=== PATIENT | female | born 1965 | race Two or more races ===

== ENCOUNTER 2018-04-12 15:15 | Inpatient (IN) | payer OTHER ==
[~2018-04-12] VITALS: Ht 162.6 cm; Wt 67.1 kg
[2018-04-12] VITALS (7 sets, daily range): BP systolic 102–117; BP diastolic 45–68
[2018-04-12] MEDS ORDERED: IBUP-1958 PO (17:41)
[2018-04-12] MEDS ORDERED: LISI-603 PO (17:41)
--- NOTE | 2018-04-12 17:45 | NUR ---
PT RECEIVED BP 95/50. TRACK LEADER LW INFORMED ADN REQUESTING TRANSFER TO ICU. CHARGE NURSE MADE AWARE. TRANS TO 261. REPORT GIVEN TO SILVESTRE.
[2018-04-12] MEDS ORDERED: ONDANSETRON HCL/PF 4 MG/2 ML VIAL IVP PRN (18:00)
[2018-04-12] MEDS ORDERED: IV NS 0.9% 1,000 ML BAG IV ONE (18:00)
[2018-04-12] MEDS ORDERED: NOREPINEPHRINE 8 MG in IV D5W 500 ML IV PRN (18:00)
[2018-04-12 18:50] LABS: ALBUMIN 2.3 g/dL (3.4-5.0); BILIRUBIN,TOTAL 0.7 mg/dL (0.2-1.0); CALCIUM, SERUM 7.8 mg/dL (8.5-10.1); CREATININE 1.2 mg/dL (0.6-1.3); MAGNESIUM 2.1 mg/dL (1.8-2.4); PHOSPHORUS 2.5 mg/dL (2.5-4.9); POTASSIUM 4.2 mmol/L (3.5-5.1); TOTAL PROTEIN, SERUM 5.8 g/dL (6.4-8.2)
[2018-04-12 18:54] LABS: EOSINOPHILS % (AUTO) 0.2 % (0.0-6.0); HEMATOCRIT 38 % (33-45); HEMOGLOBIN 12.8 g/dL (11.5-14.8); LYMPHOCYTES # (AUTO) 0.5 /CMM (0.8-4.8); LYMPHOCYTES % (AUTO) 2.4 % (20.0-44.0); MEAN CORPUSCULAR HGB CONC 34 g/dl (31.0-36.0); MEAN CORPUSCULAR VOLUME 86 fL (82-100); MONOCYTES # (AUTO) 0.7 /CMM (0.1-1.30); MONOCYTES % (AUTO) 3.9 % (2.0-12.0); NEUTROPHILS # (AUTO) 17.9 /CMM (1.8-8.9); NEUTROPHILS % (AUTO) 93.5 % (43.0-81.0); PLATELET COUNT (AUTO) 138 /CMM (150-450); RDW COEFFICIENT OF VARIATION 13.1 (11.5-15.0); RED BLOOD CELL COUNT(AUTO) 4.46 MIL/uL (4.0-5.2); WHITE BLOOD COUNT (AUTO) 19.1 K/uL (4.3-11.0)
[2018-04-12] MEDS ORDERED: FEE PK DOSING 1 MIN EA MC ONE (19:01)
--- NOTE | 2018-04-12 19:32 | NUR ---
STOCK ANALYST. ADMISSION. RECEIVED THE PT FROM MED/SURG. LOW BLOOD PRESSURE. PT AWAKE, ALERT, FOLLOW COMMANDS. FURNACE MAINTENANCE SHOWING NSR. IV RT AC 20G. SALINE LOCK. AFEBRILE. BLOOD PRESSURE 102/45. WILL CONTINUE TO MONITOR VITALS.
[2018-04-12] MEDS: IV NS 0.9% 1,000 ML IV SCH (20:58)
[2018-04-12] MEDS ORDERED: MORPHINE SULFATE INJ 2 MG/ML DISP.SYRIN IV PRN (21:30)
[2018-04-12] MEDS: PIPERACILLIN /TAZOBACTAM 3.375 G in IV D5W 50 ML IV SCH (22:02)
[2018-04-12] MEDS: VANCOMYCIN 0.75 GM in IV D5W 250 ML IV SCH (22:02)
[2018-04-12] MEDS: ENOXAPARIN SODIUM 30 MG/0.3 ML DISP.SYRIN SQ SCH (22:06)
[2018-04-12] MEDS: MORPHINE SULFATE INJ 4 MG/ML DISP.SYRIN IV PRN (22:59)
[2018-04-12] MEDS: ACETAMINOPHEN 325 MG TABLET PO PRN (23:15)
--- NOTE | 2018-04-12 23:29 | NUR ---
horticultural specialty grower field. pt c/o rt chest and shoulder pain. morphine iv given pr md ordered. EKG TAKEN.
--- NOTE | 2018-04-12 23:31 | NUR ---
BROWNELL OPERATOR. TEMPERATURE 101.4. TYLENOL PO GIVEN PER MD ORDERED.
[2018-04-13] VITALS (25 sets, daily range): BP systolic 85–159; BP diastolic 25–91
[2018-04-13 04:37] LABS: BASOPHILS % (AUTO) 0.1 % (0.0-2.0); EOSINOPHILS % (AUTO) 0.1 % (0.0-6.0); HEMATOCRIT 37 % (33-45); HEMOGLOBIN 12.5 g/dL (11.5-14.8); LYMPHOCYTES % (AUTO) 7.9 % (20.0-44.0); MEAN CORPUSCULAR HGB CONC 34 g/dl (31.0-36.0); MEAN CORPUSCULAR VOLUME 86 fL (82-100); MONOCYTES # (AUTO) 0.5 /CMM (0.1-1.30); MONOCYTES % (AUTO) 4.2 % (2.0-12.0); NEUTROPHILS # (AUTO) 11.1 /CMM (1.8-8.9); NEUTROPHILS % (AUTO) 87.7 % (43.0-81.0); PLATELET COUNT (AUTO) 143 /CMM (150-450); RDW COEFFICIENT OF VARIATION 13.1 (11.5-15.0); RED BLOOD CELL COUNT(AUTO) 4.33 MIL/uL (4.0-5.2); WHITE BLOOD COUNT (AUTO) 12.6 K/uL (4.3-11.0)
[2018-04-13] MEDS: IV NS 0.9% 1,000 ML IV SCH ×2 (04:52→08:20)
--- NOTE | 2018-04-13 04:56 | NUR ---
HEAD BANQUET WAITER/WAITRESS. AM CARE, ORAL CARE, BED BATH GIVEN. LINEN CHANGED. REMAINING SAME IVF NS 150ML/H. HOB ELEVATED, PT SLEPT WELL DURING NIGHT, AFEBRILE. WILL CONTINUE TO MONITOR VITALS.
[2018-04-13 05:12] LABS: CALCIUM, SERUM 7.6 mg/dL (8.5-10.1); CARBON DIOXIDE 22 mmol/L (21-32); CHLORIDE 108 mmol/L (98-107); GLUCOSE 90 mg/dL (74-106); MAGNESIUM 2.1 mg/dL (1.8-2.4); PHOSPHORUS 2.7 mg/dL (2.5-4.9); POTASSIUM 4.4 mmol/L (3.5-5.1); SODIUM SERUM 135 mmol/L (136-145); UREA NITROGEN, BLOOD 12 mg/dL (7-18)
[2018-04-13 05:19] LABS: CHOLESTEROL 77 mg/dL (<200); LDL 41 mg/dL (0-99); THYROID STIMULATING HORMONE 1.136 uIU/mL (0.358-3.74); TRIGLYCERIDES 117 mg/dL (30-150)
[2018-04-13 05:20] LABS: HDL CHOLESTEROL < 10 mg/dL (40-60)
[2018-04-13] MEDS: PIPERACILLIN /TAZOBACTAM 3.375 G in IV D5W 50 ML IV SCH ×4 (05:20→23:00)
[2018-04-13] MEDS: ACETAMINOPHEN 325 MG TABLET PO PRN ×3 (05:30→21:35)
--- NOTE | 2018-04-13 07:30 | NUR ---
ICU/RN: Pt received in stable condition, no distress noted, breathing even and unlabored, pain management effective. IVF infusing well. Oriented to POC and educated. Safety measures in place. Will cont to monitor pt.
[2018-04-13] MEDS: VANCOMYCIN 0.75 GM in IV D5W 250 ML IV SCH ×2 (08:40→20:29)
[2018-04-13] MEDS: PANTOPRAZOLE 40 MG VIAL IV SCH (08:40)
[2018-04-13] MEDS: IV NS 0.9% 1,000 ML IV PRN ×2 (09:41→18:24)
[2018-04-13] MEDS: MORPHINE SULFATE INJ 4 MG/ML DISP.SYRIN IV PRN ×3 (10:00→22:57)
--- NOTE | 2018-04-13 12:12 | NUR ---
ICU/RN: Shruthi TRANSIT COACH OPERATOR at bedside; pt status dw TRANSIT COACH OPERATOR. New orders noted and carried out. Per TRANSIT COACH OPERATOR, pt to stay in ICU; aware that pt did not need pressors overnight. Will cont to monitor pt.
[2018-04-13] MEDS ORDERED: IBUPROFEN 200 MG TABLET PO PRN (12:30)
--- NOTE | 2018-04-13 13:00 | NUR ---
ICU/RN: Pt c/o discomfort, shivering, chest tightness when coughing up secretions. temp 101; adminstered tylenol and cooling measures. Placed on O2 2L/min via NC, SOB resolved and pt reports increase in comfort. Will cont to monitor pt.
--- NOTE | 2018-04-13 15:00 | NUR ---
ICU/RN: Assisted to BSC. Urine Cx, Rapid influenza swab sent to lab as ordered by Dr Barber, ID consult. RT notified for respiratory Cx.
[2018-04-13] MEDS ORDERED: ENSURE ENLIVE CHOC 237 ML CAN PO SCH (17:00)
--- NOTE | 2018-04-13 18:00 | NUR ---
ICU/RN: CT results relayed to SILVIA Hawkins. Discussed results with pt, verbalized understanding of POC. Pt agreed to CT and US guided nephrostomy tube and drainage placement for the right kidney. Per MASTIC SPRAYER, place on NPO until procedure schedule received. Pt and family in agreement with plan.
[2018-04-13 18:30] LABS: BILIRUBIN,DIRECT 0.3 mg/dL (0.0-0.2)
--- NOTE | 2018-04-13 18:39 | NUR ---
CT GUIDED NEPHROSTOMY TO BE DONE 04/16/18 IN AM. RN RF MICROWAVE ENGINEER MIKAELA BYRNE. SPOKE WITH DEMETRIO SHER. CONSENT FOR COMPUTED TOMOGRAPHY AND ULTRASOUND GUIDED PERCUTANEOUS DRAINAGE PLACEMENT OF RIGHT KIDNEY TO BE OBTAINED. CONSENT FOR MODERATE SEDATION TO BE OBTAINED. PT TO BE NPO AFTER MIDNIGHT. BLOOD THINNERS TO BE ON HOLD DISCUSSED WITH RN. COAGS (PTT, PT, INR) AND PLATELET COUNT TO BE OBTAINED FIRST THING IN THE AM 04/16/18.
--- NOTE | 2018-04-13 19:15 | NUR ---
RELATIONS MANAGER NOTE RECEIVED PATIENT AOX4, ABLE TO MAKE NEEDS KNOWN. NO S/SX OF CARDIAC OR RESPIRATORY DISTRESS, ON 2L O2 VIA NC, ON TELE SR/ST, SKIN KEPT CLEAN AND DRY, LAC #20G WITH NS AT 150 ML/HR, PATENT FLUSHING WELL, SITE IS CLEAN AND DRY. DENIES PAIN. WILL CONTINUE TO MONITOR FOR ANY CHANGES, SAFETY MAINTAINED AT ALL TIMES, CALL LIGHT WITHIN REACH, BED IN LOW, LOCKED POSITION.
[2018-04-13 19:53] LABS: APPEARANCE,URINE CLEAR (CLEAR); BILIRUBIN,URINE NEGATIVE (NEGATIVE); BLOOD, URINE 2+ Ery/uL (NEGATIVE); COLOR,URINE YELLOW (YELLOW); KETONES,URINE NEGATIVE (NEGATIVE); LEUKOCYTE ESTERASE ,URINE 2+ (NEGATIVE); NITRITE, URINE NEGATIVE (NEGATIVE); PROTEIN,URINE NEGATIVE (NEGATIVE); UGLUCOSE NEGATIVE (NEGATIVE)
[2018-04-13] MEDS: IBUPROFEN 400 MG TABLET PO PRN (20:28)
[2018-04-13 20:54] LABS: BACTERIA,URINE Rare /HPF (None Seen); SQUAMOUS EPITHELIAL CELL,UR Few /HPF (None Seen); WBC,URINE 51-80 /HPF (0-3)
[2018-04-13] MEDS: ENOXAPARIN SODIUM 30 MG/0.3 ML DISP.SYRIN SQ SCH (21:34)
[2018-04-14] VITALS (20 sets, daily range): BP systolic 115–151; BP diastolic 38–89
[2018-04-14] MEDS: MORPHINE SULFATE INJ 4 MG/ML DISP.SYRIN IV PRN (04:09)
[2018-04-14 05:11] LABS: CALCIUM, SERUM 7.7 mg/dL (8.5-10.1); CREATININE 0.8 mg/dL (0.6-1.3); MAGNESIUM 1.9 mg/dL (1.8-2.4); PHOSPHORUS 2.3 mg/dL (2.5-4.9)
[2018-04-14 05:26] LABS: EOSINOPHILS % (AUTO) 0.9 % (0.0-6.0); HEMATOCRIT 36 % (33-45); HEMOGLOBIN 11.8 g/dL (11.5-14.8); LYMPHOCYTES # (AUTO) 0.6 /CMM (0.8-4.8); LYMPHOCYTES % (AUTO) 9.5 % (20.0-44.0); MEAN CORPUSCULAR HGB CONC 33 g/dl (31.0-36.0); MEAN CORPUSCULAR VOLUME 87 fL (82-100); MONOCYTES # (AUTO) 0.6 /CMM (0.1-1.30); NEUTROPHILS # (AUTO) 4.7 /CMM (1.8-8.9); NEUTROPHILS % (AUTO) 79.6 % (43.0-81.0); PLATELET COUNT (AUTO) 143 /CMM (150-450); RDW COEFFICIENT OF VARIATION 14.4 (11.5-15.0); WHITE BLOOD COUNT (AUTO) 5.9 K/uL (4.3-11.0)
[2018-04-14] MEDS: PIPERACILLIN /TAZOBACTAM 3.375 G in IV D5W 50 ML IV SCH ×4 (05:45→23:38)
[2018-04-14] MEDS: PANTOPRAZOLE 40 MG VIAL IV SCH (08:05)
[2018-04-14] MEDS: VANCOMYCIN 0.75 GM in IV D5W 250 ML IV SCH (09:00)
[2018-04-14] MEDS ORDERED: ENSURE ENLIVE 237 ML LIQUID (VANILLA) PO SCH (09:00)
[2018-04-14] MEDS: KETOROLAC TROMETHAMINE INJ 30 MG/ML VIAL IV SCH ×3 (09:13→21:15)
--- NOTE | 2018-04-14 09:15 | NUR ---
ICU/RN: Dr Salas at bedside for cardiology consult for surgical clearance. Aware of pt c/o chest pain with inhalation; labs and EKG reviewed. Order for 2D Echo noted and carried out. Pt is clear for procedures per MD.
[2018-04-14] MEDS: ENSURE CLEAR 237 ML LIQUID (MIX BERRY) PO SCH ×2 (09:26→16:03)
[2018-04-14] MEDS: VANCOMYCIN 1 GM in IV D5W 250 ML IV SCH ×2 (10:14→21:13)
[2018-04-14] MEDS: IV NS 0.9% 1,000 ML IV PRN ×3 (10:17→18:35)
[2018-04-14] MEDS: ACETAMINOPHEN 325 MG TABLET PO PRN (10:22)
[2018-04-14] MEDS ORDERED: Sodium Phosphate 7.5 MMOL in IV D5W 100 ML IV ONE (11:00)
[2018-04-14] MEDS: IBUPROFEN 400 MG TABLET PO PRN (11:47)
--- NOTE | 2018-04-14 14:45 | NUR ---
ICU/RN: Jeny Hawkins, RAILROAD HAND at bedside. Labs, info, POC reviewed with pt and family extensively. Pt for surgery on Monday, MRCP ordered. Informed of pt c/o hallucinations, per RAILROAD HAND, most likely due to infectious process.
[2018-04-14] MEDS: LORAZEPAM 1 MG TABLET PO PRN ×2 (15:57→22:43)
--- NOTE | 2018-04-14 18:30 | NUR ---
ICU/RN: Pt transferred in stable condition, no distress noted, pt calm, ativan effective. SB-SR 60's on monitor. at bedside. All belongings and paperwork transferred with pt.
--- NOTE | 2018-04-14 18:30 | NUR ---
RN NOTES RECEIVED PT, DOWNGRADE FROM ICU VIA BED ACCOMPANIED BY RN AND . PT IS A/OX4. NO C/O PAIN AT THIS TIME. PLACED ON TELEMONITOR, SR HR 60S. ON 2L O2 VIA NC, TOLERATING WELL. NO SOB NOTED. WITH INTACT AND PATENT RHAND G22 AND LFA G20 SL. NOTED ANJELICA SWELLING, FROM PREVIOUS IV SITE. EXTREMITY ELEVATED. ORIENTED TO ROOM. VITAL SIGNS TAKEN. SAFETY MEASURES IN PLACED. CALL LIGHT WITHIN REACH. WILL CONT TO MONITOR
--- NOTE | 2018-04-14 19:10 | NUR ---
RN THUAN NOTE RECEIVED PATIENT WITH HOB ELEVATED, AOX4, ABLE TO MAKE NEEDS KNOWN. NO S/SX OF CARDIAC OR RESPIRATORY DISTRESS, ON 2L O2 VIA NC, ON TELE SR, SKIN KEPT CLEAN AND DRY, RIGHT HAND #22G WITH NS AT 150 ML/HR, AND LFA #20G SL, BOTH PATENT FLUSHING WELL, SITE IS CLEAN AND DRY. DENIES PAIN CURRENTLY. WILL CONTINUE TO MONITOR FOR ANY CHANGES, SAFETY MAINTAINED AT ALL TIMES, CALL LIGHT WITHIN REACH, BED IN LOW, LOCKED POSITION.
[2018-04-14] MEDS: ENOXAPARIN SODIUM 30 MG/0.3 ML DISP.SYRIN SQ SCH (21:15)
[2018-04-15] VITALS: BP 130/75
[2018-04-15 00:10] VITALS: BP 130/75
[2018-04-15] MEDS: KETOROLAC TROMETHAMINE INJ 30 MG/ML VIAL IV SCH ×2 (02:55→08:13)
[2018-04-15 04:00] VITALS: BP 147/91
[2018-04-15] MEDS: PIPERACILLIN /TAZOBACTAM 3.375 G in IV D5W 50 ML IV SCH ×3 (05:38→17:59)
[2018-04-15] MEDS: IV NS 0.9% 1,000 ML IV PRN ×2 (05:46→20:47)
[2018-04-15 07:20] LABS: HEMATOCRIT 36 % (33-45); HEMOGLOBIN 12.2 g/dL (11.5-14.8); MEAN CORPUSCULAR HGB CONC 34 g/dl (31.0-36.0); MEAN CORPUSCULAR VOLUME 86 fL (82-100); PLATELET COUNT (AUTO) 144 /CMM (150-450); RDW COEFFICIENT OF VARIATION 14.5 (11.5-15.0); RED BLOOD CELL COUNT(AUTO) 4.23 MIL/uL (4.0-5.2); WHITE BLOOD COUNT (AUTO) 4.2 K/uL (4.3-11.0)
[2018-04-15 07:22] LABS: CREATININE 0.7 mg/dL (0.6-1.3); MAGNESIUM 1.5 mg/dL (1.8-2.4); POTASSIUM 3.9 mmol/L (3.5-5.1)
--- NOTE | 2018-04-15 07:22 | NUR ---
TEXTED DR. [facility]RIA [facility].
[2018-04-15 08:00] VITALS: BP 148/74
--- NOTE | 2018-04-15 08:00 | NUR ---
RN NOTES RECEIVED IN BED, ALERT AND ORIENTED X4, ABLE TO VERBALIZED FEELINGS AND CONCERN, ON NASAL CANNULA WITH 2 LPM, NO SHORTNESS OF BREATH NOTED, WITH COMPLAINTS OF PAIN - WILL ADMINISTER DUE PAIN MEDICATION, PATIENT AMBULATORY, AT BEDSIDE. REMOVED IV LINE ON THE RIGHT HAND DUE TO INFILTRATION. IVL ON THE LEFT FOREARM INTACT AND PATENT ON FLUSHING, IVF LINE ATTACHED. PATIENT REORIENTED ON THE FLOOR. CALL LIGHT LEFT WITHIN EASY REACH, WILL MONITOR PATIENT CLOSELY
[2018-04-15] MEDS: PANTOPRAZOLE 40 MG VIAL IV SCH (08:13)
[2018-04-15] MEDS: ENSURE CLEAR 237 ML LIQUID (MIX BERRY) PO SCH ×2 (08:22→17:47)
[2018-04-15 09:15] LABS: NEUTROPHILS % (MANUAL) 80 (42-76)
[2018-04-15 09:16] LABS: BAND % (MANUAL) 5 % (0.0-5.0); LYMPHOCYTES % (MANUAL) 10 % (16-48); MONOCYTES % (MANUAL) 5 % (0-11.0)
[2018-04-15] MEDS: PANTOPRAZOLE 40 MG TABLET.DR PO SCH (10:00)
[2018-04-15] MEDS: VANCOMYCIN 1 GM in IV D5W 250 ML IV SCH ×2 (10:08→21:05)
[2018-04-15] MEDS: Magnesium 1GM/D5W 100ML PREMIX 100 ML IV SCH ×2 (11:39→15:21)
[2018-04-15] MEDS: ALBUTEROL FS 2.5 MG/0.5 ML VIAL.NEB NEB SCH ×3 (13:30→23:39)
[2018-04-15 16:00] VITALS: BP 148/72
[2018-04-15] MEDS: MORPHINE SULFATE INJ 4 MG/ML DISP.SYRIN IV PRN (18:41)
--- NOTE | 2018-04-15 19:25 | NUR ---
RN NOTES ENDORSED FOR CONTINUITY OF CARE. NO ACUTE CHANGES FOR THE ENTIRE SHIFT. ALL NURSING NEEDS ANTICIPATED AND MET. SAFETY MEASURES IN PLACE ALL THE TIME. CALL LIGHT WITHIN REACH AT ALL TIMES
[2018-04-15 20:00] VITALS: BP 144/74
[2018-04-15] MEDS: IBUPROFEN 400 MG TABLET PO PRN (20:48)
[2018-04-15] MEDS: ENOXAPARIN SODIUM 30 MG/0.3 ML DISP.SYRIN SQ SCH (20:53)
[2018-04-16] MEDS: PIPERACILLIN /TAZOBACTAM 3.375 G in IV D5W 50 ML IV SCH ×3 (00:07→12:00)
[2018-04-16 04:00] VITALS: BP 156/76
[2018-04-16] MEDS: MORPHINE SULFATE INJ 4 MG/ML DISP.SYRIN IV PRN ×2 (04:40→08:42)
[2018-04-16 06:35] VITALS: BP 156/76
--- NOTE | 2018-04-16 07:20 | NUR ---
RN OPENING NOTES RECIEVED PATIENT IN BED RESTING, IN STABLE CONDITION. NO ACUTE DISTRESS, NO SOB. DENIED PAIN AND DISCOMFORT AT THE MOMENT. IV SITE INTACT AND PATENT. KEPT PATIENT SAFE AND COMFORTABLE. BED IN LOW/LOCKED POSITION, SIDERAILS UPX2, MAHI LIGHT IN REACH. WILL CONITNUE TO MONITOR ACCORDINGLY.
[2018-04-16 07:24] LABS: CALCIUM, SERUM 8.3 mg/dL (8.5-10.1); CREATININE 0.7 mg/dL (0.6-1.3); EOSINOPHILS % (AUTO) 2.6 % (0.0-6.0); HEMATOCRIT 38 % (33-45); HEMOGLOBIN 12.6 g/dL (11.5-14.8); LYMPHOCYTES # (AUTO) 1.5 /CMM (0.8-4.8); LYMPHOCYTES % (AUTO) 28.8 % (20.0-44.0); MAGNESIUM 1.7 mg/dL (1.8-2.4); MEAN CORPUSCULAR HGB CONC 34 g/dl (31.0-36.0); MEAN CORPUSCULAR VOLUME 85 fL (82-100); MONOCYTES # (AUTO) 0.9 /CMM (0.1-1.30); MONOCYTES % (AUTO) 16.4 % (2.0-12.0); NEUTROPHILS # (AUTO) 2.8 /CMM (1.8-8.9); NEUTROPHILS % (AUTO) 52.2 % (43.0-81.0); PLATELET COUNT (AUTO) 188 /CMM (150-450); POTASSIUM 3.7 mmol/L (3.5-5.1); RDW COEFFICIENT OF VARIATION 14.6 (11.5-15.0); RED BLOOD CELL COUNT(AUTO) 4.42 MIL/uL (4.0-5.2); WHITE BLOOD COUNT (AUTO) 5.3 K/uL (4.3-11.0)
[2018-04-16 08:00] VITALS: BP 156/81
[2018-04-16] MEDS: ENSURE CLEAR 237 ML LIQUID (MIX BERRY) PO SCH (08:00)
[2018-04-16] MEDS: PANTOPRAZOLE 40 MG TABLET.DR PO SCH (08:42)
[2018-04-16] MEDS: VANCOMYCIN 1 GM in IV D5W 250 ML IV SCH (09:04)
[2018-04-16] MEDS ORDERED: Magnesium 1GM/D5W 100ML PREMIX 100 ML IV SCH (10:30)
--- NOTE | 2018-04-16 11:30 | NUR ---
RN NOTES: MRCP PICKED UP BY AMBULANCE FOR MRCP AT [facility].
[2018-04-16] MEDS ORDERED: PANT40TA2 PO (12:05)
[2018-04-16] MEDS ORDERED: IBUP-1953 PO (12:05)
[2018-04-16] MEDS ORDERED: ONDA4VIA23 IVP (12:05)
[2018-04-16] MEDS ORDERED: Lactose-Free Food PO (12:05)
[2018-04-16] MEDS ORDERED: RXVAN XX (12:05)
[2018-04-16] MEDS ORDERED: ALBU2.5V13 NEB (12:05)
[2018-04-16] MEDS ORDERED: Morphine Sulfate Inj IV (12:05)
[2018-04-16] MEDS ORDERED: LORA1TAB PO (12:05)
[2018-04-16] MEDS ORDERED: ACET325T53 PO (12:05)
--- NOTE | 2018-04-16 13:30 | NUR ---
RN NOTES: ABX ZOSYN SCHEDULED FOR 1200 WAS NON ADMIN. CATALINA FROM PHARMACY MADE AWARE. PATIENT ABSENT FROM THE UNIT, HAVING A PROCEDURE AT [facility].
--- NOTE | 2018-04-16 16:00 | NUR ---
CREDIT PRODUCTS OFFICER NOTES RECEIVED A CALL FROM CASE MANAGEMENT THAT PATIENT WILL NOT COME BACK HERE. PATIENT ALREADY ADMITTED AT [facility]. ALL BELONGINGS WAS PUT IN A PATIENT'S BELONGING BAG AND PLACED IN THE NURSING STATION.
[2018-04-16] MEDS ORDERED: VANCOMYCIN 1.25 GM in IV D5W 500 ML IV SCH (21:00)
== END 2018-04-16 11:30 | disposition short-term general hospital (02) | DRG 720 ==
LOC: TELE 17:11 → ICU 18:34 → TELE-TD 04-14 18:11 → MEDSG1 04-15 19:15
PROVIDERS: ADMIT Registered Nurse; ATTEND Registered Nurse
DX: A41.9 Sepsis, unspecified organism (principal); R65.21 Severe sepsis with septic shock; N17.9 Acute kidney failure, unspecified; D69.6 Thrombocytopenia, unspecified; J18.9 Pneumonia, unspecified organism; E87.2 Acidosis; E83.39 Other disorders of phosphorus metabolism; E87.1 Hypo-osmolality and hyponatremia; K80.20 Calculus of gallbladder without cholecystitis without obstruction; E66.9 Obesity, unspecified; I10 Essential (primary) hypertension; N10 Acute pyelonephritis; Z68.25 Body mass index [BMI] 25.0-25.9, adult; N12 Tubulo-interstitial nephritis, not specified as acute or chronic
CPT/HCPCS: 36415; 71045-TC; 80048-TC; 80053-TC; 80061-TC; 80202-TC; 81000-TC; 82248-TC; 83605-TC; 83735-TC; 84100-TC; 84443-TC; 84484-TC; 85025-TC; 87040-TC; 87081-TC; 87086-TC; 87806; 93307-TC; 93970-TC; 94799-TC; A9563; C9113; J1650; J1885; J2270; J2543; J3370; J3475; J7030; J7060; Z7610